=== PATIENT | female | born 1985 | race Two or more races ===

== ENCOUNTER 2018-06-25 12:01 | Emergency (ER) | payer OTHER ==
[~2018-06-25] VITALS: Ht 170.2 cm; Wt 56.7 kg
--- NOTE | 2018-06-25 12:15 | NUR ---
PT BIBRA C/O ANXIETY, PT IS AAOX4, NOT IN RESPIRATORY DISTRESS, V/S STABLE, KEPT RESTED AND COMFORTABLE, URINE COLLECTED AND SENT TO LAB.
--- NOTE | 2018-06-25 12:22 | NUR ---
DR. STERN AT BEDSIDE FOR EVAL.
[2018-06-25] MEDS ORDERED: LORAZEPAM 1 MG TABLET ONE ×2 (12:24→12:32)
--- NOTE | 2018-06-25 12:25 | NUR ---
STAYED AT BEDSIDE WITH PT FOR COMFORT. SHE HAD FEELINGS OF FEAR, BUT NOT SURE WHY. "HOLDING YOUR HAND MAKES ME FEEL BETTER"
[2018-06-25] MEDS ORDERED: LORAZEPAM 1 MG TABLET PO ONE (12:30)
--- NOTE | 2018-06-25 14:28 | NUR ---
Patient discharged to home in stable condition. Written and verbal after care instructions given. Patient verbalizes understanding of instruction.
[2018-06-25 14:30] VITALS: BP 130/83
== END 2018-06-25 14:30 | disposition home or self-care (01) ==
LOC: EDBD 12:02 → ER 12:02
DX: F43.0 Acute stress reaction (principal); F41.9 Anxiety disorder, unspecified; F12.90 Cannabis use, unspecified, uncomplicated
CPT/HCPCS: 99284; A4606; Z7610